=== PATIENT | female | born 1955 | race Caucasian/White ===

== ENCOUNTER → 2017-10-05 | Outpatient (CLI) | payer BC ==
--- NOTE | 2017-10-06 11:21 | MM ---
Reason for exam: additional evaluation requested from prior study. Last mammogram was performed 2 years and 5 months ago. History: Patient is postmenopausal. Benign US biopsy breast VAD RT of the right breast, April 23, 2015. Benign right US cyst aspiration of the right breast, July 27, 2005. Cyst aspiration of the right breast. Physical Findings: Nurse did not find any significant physical abnormalities on exam. MG 3D Diag Mammo W/Cad KARISSA Bilateral CC and MLO view(s) were taken. LM, spot compression CC, and spot compression MLO view(s) were taken of the right breast. Prior study comparison: April 23, 2015, right breast MG diagnostic mammo RT wo CAD. April 07, 2015, right breast MG 3d work up w/cad RT. The breast tissue is heterogeneously dense. This may lower the sensitivity of mammography. Right biopsy marker noted. Architectural distortion in upper outer quadrant of the right breast at middle posterior depth. These results were verbally communicated with the patient and result sheet given to the patient on 10/05/17. ASSESSMENT: Incomplete: need additional imaging evaluation, BI-RAD 0 RECOMMENDATION: Ultrasound of the right breast.
--- NOTE | 2017-10-06 11:25 | USB ---
Reason for exam: additional evaluation requested from prior study. History: Patient is postmenopausal. Benign US biopsy breast VAD RT of the right breast, April 23, 2015. Benign right US cyst aspiration of the right breast, July 27, 2005. Cyst aspiration of the right breast. US Breast Limited RT Right limited breast ultrasound including focal area of concern, retroareolar and axilla demonstrates a 0.4 x 0.3 x 0.5cm cystic cluster at 9 o'clock, appears benign and a 1.2 x 0.7 x 0.9cm hypoechoic lesion at 8 o'clock, highly suspicious shadowing, irregular margins, taller than wide, biopsy recommended, corresponds to mammographic finding. These results were verbally communicated with the patient and result sheet given to the patient on 10/05/17. ASSESSMENT: Highly suggestive of malignancy, BI-RAD 5 RECOMMENDATION: Ultrasound core biopsy of the right breast. Called with mammographic findings and has scheduled an appointment for the patient with Dr. Terry. Biopsy scheduled for 10/12/17 at 1:00. PRELIMINARY REPORT CALLED AND FAXED TO DR. TERRY ON 10/06/17.
== END | disposition home or self-care (01) ==
LOC: RADMAMWWP 10:19
PROVIDERS: ATTEND Internal Medicine
DX: R92.8 Other abnormal and inconclusive findings on diagnostic imaging of breast (principal)
CPT/HCPCS: 77062; 77066

== ENCOUNTER → 2017-10-12 | Day surgery (SDC) | payer BC ==
[2017-10-12 12:35] VITALS: RESP 16; BMI 29.5
[2017-10-12 13:54] VITALS: BP 150/82; PULSE 77; TEMP 98.2
--- NOTE | 2017-10-12 14:48 | MM ---
EXAMINATION TYPE: US biopsy breast VAD RT DATE OF EXAM: 10/12/2017 CLINICAL HISTORY: R92.8 Abnormal Mammogram. TECHNIQUE: Ultrasound guided core biopsy of right breast. COMPARISON: NONE FINDINGS: The procedure of ultrasound guided core biopsy was explained to the patient. Benefits, alt ernatives, and risks were discussed. An informed consent was then obtained. The patient was placed in supine positioning for imaging and for the procedure. The overlying skin w as prepped and draped in usual sterile fashion. Lidocaine buffered with bicarbonate was used as anes thetic into the skin and subcutaneous tissue up to area of concern in the right breast. A small lesly was made with surgical scalpel. Under ultrasound guidance, a 12-gauge vacuum assisted biopsy gun device was used to obtain 7 core nory ples. Following this, a biopsy clip was left in lesion. The patient tolerated the procedure well without any immediate complication. The patient was kept in the radiology department for short stay after the procedure and then discharged home in stable condi tion. Postprocedure mammogram ordered by the physician was obtained. Surgical clip is in the expected regio n. Cortical clip was placed. A second rib and is also identified. IMPRESSION: 1. Successful ultrasound-guided core biopsy right breast 8:00 position. Recommendations: 1. Recommendations are pending pathology results.
--- NOTE | 2017-10-12 14:48 | USB ---
EXAMINATION TYPE: US biopsy breast VAD RT DATE OF EXAM: 10/12/2017 CLINICAL HISTORY: R92.8 Abnormal Mammogram. TECHNIQUE: Ultrasound guided core biopsy of right breast. COMPARISON: NONE FINDINGS: The procedure of ultrasound guided core biopsy was explained to the patient. Benefits, alternatives, and risks were discussed. An informed consent was then obtained. The patient was placed in supine positioning for imaging and for the procedure. The overlying skin was prepped and draped in usual sterile fashion. Lidocaine buffered with bicarbonate was used as anesthetic into the skin and subcutaneous tissue up to area of concern in the right breast. A small lesly was made with surgical scalpel. Under ultrasound guidance, a 12-gauge vacuum assisted biopsy gun device was used to obtain 7 core samples. Following this, a biopsy clip was left in lesion. The patient tolerated the procedure well without any immediate complication. The patient was kept in the radiology department for short stay after the procedure and then discharged home in stable condition. Postprocedure mammogram ordered by the physician was obtained. Surgical clip is in the expected region. Cortical clip was placed. A second rib and is also identified. IMPRESSION: 1. Successful ultrasound-guided core biopsy right breast 8:00 position. Recommendations: 1. Recommendations are pending pathology results. Pathology Results: Malignant NEEDLE CORE BIOPSIES OF RIGHT BREAST AT EIGHT O'CLOCK POSITION: Moderately differentiated infiltrating ductal carcinoma. Baudilio grade 2 in association with high grade duct carcinoma in situ showing focal intraluminal necrosis. Approximately 10% of the volume of the specimen is involved by infiltrating carcinoma. See note. Recommendation Surgical consult of the right breast. MELLY
== END ==
LOC: RADUSWWP 12:15
PROVIDERS: ATTEND Internal Medicine
DX: C50.511 Malignant neoplasm of lower-outer quadrant of right female breast (principal); Z17.0 Estrogen receptor positive status [ER+]; Z88.8 Allergy status to other drugs, medicaments and biological substances
CPT/HCPCS: 88305; 77065; 19083; A4648; J2001

== ENCOUNTER 2017-11-21 10:15 | Day surgery (SDC) | payer BC ==
[2017-11-14 12:56] VITALS: BMI 29.5
[~2017-11-21 10:15] MED LIST: DEXAMETHASONE SOD PHOSPHATE 10 MG/ML 1 ML VIAL IV ONE; HEPARIN SODIUM,PORCINE 5,000 UNIT/ML 1 ML VIAL SQ ONE; LACTATED RINGERS 1,000 ML IV SCH; MIDAZOLAM 2 MG/2 ML VIAL IV PRN; ONDANSETRON 4 MG/2 ML VIAL IVP ONE; Pre Op ABX Message 1 EACH MISC MISCELLANE ONE; SCOPOLAMINE 1.5MG/72HR PATCH TRANSDERM ONE
[2017-11-21] MEDS ORDERED: ALPRAZolam 0.25 MG TAB PO ONE (10:32)
[2017-11-21] MEDS ORDERED: LIDOCAINE 1% 20 ML VIAL (10MG/ML) FOR IV START INTRADERMA ONE (10:40)
[2017-11-21] MEDS ORDERED: LIDOCAINE 1% INJ 10MG/ML (20 ML MDV) SQ ONE (11:22)
[2017-11-21] MEDS ORDERED: SODIUM BICARB 4% 5 ML VIAL (0.48 MEQ/ML) MISCELLANE ONE (11:22)
--- NOTE | 2017-11-21 12:01 | NM ---
EXAMINATION TYPE: NM sentinel node injection DATE OF EXAM: 11/21/2017 COMPARISON: NONE HISTORY: Right-sided breast cancer TECHNIQUE AND FINDINGS: The procedure of sentinel lymph node injection was explained to the patient. The benefits, alternatives, and risks were discussed. An informed consent was then obtained. Overlying skin is cleaned with sterile alcohol. Following this, 521 uCi [id number] Tilmanocept was inject ed into single dose at upper outer quadrant position surrounding the right nipple intradermally. The patient tolerated the procedure well without any immediate complication. The patient was kept in the radiology department for short stay after the procedure and then taken to surgery for surgical p rocedure what is presumed intraoperative gamma probe will be used for sentinel lymph node detection. IMPRESSION: Right breast radiotracer injection for sentinel node localization as above.
[2017-11-21] MEDS ORDERED: LIDOCAINE 1% INJ 10MG/ML (20 ML MDV) ONE (12:55)
[2017-11-21] MEDS ORDERED: fentaNYL (PF) 50 MCG/ML 2 ML AMP ONE (12:55)
[2017-11-21] MEDS ORDERED: PROPOFOL 10 MG/ML 20 ML VIAL IV ONE (12:55)
[2017-11-21] MEDS ORDERED: MIDAZOLAM 2 MG/2 ML VIAL ONE (12:55)
[2017-11-21] MEDS ORDERED: SUCCINYLCHOLINE CHLORIDE 100 MG/5 ML SYR IV ONE (12:55)
[2017-11-21] MEDS ORDERED: ePHEDrine SULFATE/0.9% NACL/PF 50 MG/5 ML SYRINGE IV ONE (12:55)
[2017-11-21] MEDS ORDERED: ROPIVACAINE 5 MG/ML 30 ML VIAL MISCELLANE ONE ×2 (13:29)
[2017-11-21] MEDS ORDERED: NALOXONE 0.4 MG/ML 1 ML VIAL IV PRN (14:51)
[2017-11-21] MEDS ORDERED: HYDROmorphone 1 MG/ML 1 ML SYRINGE IVP PRN (14:51)
[2017-11-21] MEDS ORDERED: traMADol 50 MG TAB PO PRN (14:51)
[2017-11-21 15:00] VITALS: RESP 18; TEMP 97.3
[2017-11-21] MEDS: HYDROmorphone 1 MG/ML 1 ML SYRINGE IVP PRN ×2 (15:00→15:15)
--- NOTE | 2017-11-21 15:04 | P.OP ---
Date of Procedure: 11/21/17 Procedure(s) Performed: PREOPERATIVE DIAGNOSIS: Right breast cancer POSTOPERATIVE DIAGNOSIS: Same PROCEDURE: Right Breast wire localization lumpectomy with sentinel lymph node biopsy SURGEON: Alla EBL: Minimal ANESTHESIA: General COMPLICATIONS: None OPERATIVE PROCEDURE: Patient was placed on the operating room table in the supine position. 2 mL of methylene blue was injected into the subareolar space. The breast was then massaged for 5 minutes. The right axilla was addressed at that time. The hot spot in the right axilla was identified. A small curvilinear incision was made using the scalpel. Dissection down through the subcutaneous tissues took place using electrocautery. Using the neoprobe I identified a total of 2 sentinel lymph nodes. They were both somewhat large in size. One of the 2 was blue in color. Frozen section was obtained and thankfully both lymph nodes were negative for metastatic disease. No bleeding was seen. The subcutaneous tissues were closed using 3-0 Vicryl sutures. The skin was closed using 4-0 Monocryl sutures. The wire entrance site was then addressed. This was present at the 9:00 location. A curvilinear incision was made adjacent to the wire entrance site. I followed the wire down into the breast tissue. An adequate lumpectomy specimen then took place around the wire. Margins of 1.5-2 cm worth attempted to be achieved. As I palpated the specimen the induration was closest to the superior and posterior margins. For that reason I took off an additional small fairly thin portion of tissue at the superior and posterior aspect marking these as new margins. The paint was utilized on the new margin side. The initial lumpectomy specimen was also painted using the appropriate color. The clip submarine advisory team watch officer was used to elizabeth the lumpectomy site circumferentially. The clip was confirmed to be within the lumpectomy specimen by radiology. The subcutaneous tissues were closed using 3- 0 Vicryl sutures. The skin was closed using a running 4-0 Monocryl stitch. Steri-Strips and sterile dressings were applied. DISPOSITION: Stable to recovery room
[2017-11-21] MEDS ORDERED: traMADol 50 MG TAB PO ONE (16:27)
[2017-11-21 16:43] VITALS: PULSE 103
[2017-11-21 17:07] VITALS: BP 132/82
--- NOTE | 2017-11-23 08:07 | MM ---
EXAMINATION TYPE: MG pre op needle loc RT, MG surgical specimen RT DATE OF EXAM: 11/21/2017 COMPARISON: Mammogram October 20, 2017 and older studies CLINICAL HISTORY: Ultrasound-guided biopsy-proven infiltrating ductal carcinoma October 12, 2017 TECHNIQUE: Needle localization with wire placement and surgical excision of area of concern in the [facility] breast with specimen radiograph. FINDINGS: The procedure of needle localization with wire placement and than surgical excision was exp lained to the patient. Benefits, alternatives, and risks were discussed. An informed consent was th en obtained. The shortest pathway for procedure was chosen. Shortest pathway was lateral approach. The overlying skin was prepped and draped in usual sterile fashion. Lidocaine buffered with bicarbonate was used a s anesthetic into the skin and subcutaneous tissue up to the level of area of concern. A 5 cm needle was used. It was placed via a lateral approach under mammographic guidance. Subsequent 90 degrees mammogram show the needle to be in satisfactory position relative to the targeted area. At this poin t, wire was placed and the needle was withdrawn. The wire was fixed to patient's skin. Images were marked for surgeon. The patient tolerated the procedure well without any immediate complication. The patient was kept in the radiology department for short stay after the procedure and then taken to surgery for surgical e xcision. Targeted biopsy clip and wire are identified in specimen mammogram. The patient was kept in hospital for short stay after the procedure and then discharged home in stable condition. IMPRESSION: Successful, uncomplicated needle localization with wire placement and surgical excision o f targeted biopsy clip at level of biopsy-proven malignancy in the right breast, full pathology resul ts to follow.
== END 2017-11-21 17:28 | disposition home or self-care (01) ==
LOC: OR 10:15
PROVIDERS: ATTEND Surgery
DX: C50.511 Malignant neoplasm of lower-outer quadrant of right female breast (principal); Z88.8 Allergy status to other drugs, medicaments and biological substances; Z79.02 Long term (current) use of antithrombotics/antiplatelets; Z79.899 Other long term (current) drug therapy; E78.5 Hyperlipidemia, unspecified; I10 Essential (primary) hypertension; F41.9 Anxiety disorder, unspecified; Z87.891 Personal history of nicotine dependence
CPT/HCPCS: 19301; 38525; 76098; 19281; 38792; A9520; J2250; J1644; J1100; J2405; J2001; J3010; J1170; J2795; J0330; J2704; 88307; 88331; 88341; 88342

== ENCOUNTER → 2018-02-07 | Outpatient (CLI) | payer BC ==
--- NOTE | 2018-02-08 08:21 | BD ---
EXAMINATION TYPE: Axial Bone Density DATE OF EXAM: 02/07/2018 COMPARISON: DEXA bone scan June 01, 2013 CLINICAL HISTORY: Breast cancer, postmenopausal female. Height: 5 FT 2 1/2 IN Weight: 158 FRAX RISK QUESTIONS: RISK FACTORS HISTORY OF: Active: YES Postmenopausal woman: AGE 54 MEDICATIONS: Additional Medications: HYZAAR, CLONIDINE, PRAVASTATIN, POTASSIUM Additional History: RECENT BREAST CANCER PT RADIATION ONLY EXAM MEASUREMENTS: Bone mineral densitometry was performed using the [employer] System. Bone mineral density as measured about the Lumbar spine is: ----- L1-L4(G/cm2): 1.196 T Score Values are as follows: ----- L2: 0.0 ----- L3: 0.8 ----- L4: 0.2 ----- L1-L4: 0.1 Bone mineral density has: DECREASED -4.5 % since study of: 2013 Bone mineral density about the R hip (g/cm2): 1.059 Bone mineral density about the L hip (g/cm2): 1.177 T Score values are as follows: -----R Neck: 0.1 -----L Neck: 1.0 -----R Total: 1.2 -----L Total: 1.6 Bone mineral density has: DECREASED -1.8 % since study of: 2013 IMPRESSION: Normal (Values between +1 and -1 indicate normal bone mass). Consider repeating this study in 5 year s or sooner if there is some new clinical indication. NOTE: T-SCORE=SD OF THE YOUNG ADULT MEAN.
== END ==
LOC: RADBDWWP 15:27
PROVIDERS: ATTEND Internal Medicine Hematology & Oncology
DX: C50.511 Malignant neoplasm of lower-outer quadrant of right female breast (principal); Z78.0 Asymptomatic menopausal state
CPT/HCPCS: 77080

== ENCOUNTER → 2018-10-17 | Outpatient (CLI) | payer BC ==
--- NOTE | 2018-10-17 13:49 | MM ---
Reason for exam: additional evaluation requested from prior study. Last mammogram was performed 1 year ago. History: Patient is postmenopausal and has history of breast cancer at age 61. Malignant MG pre op needle loc RT of the right breast, November 21, 2017. Lumpectomy of the right breast, November 21, 2017. Malignant US biopsy breast VAD RT of the right breast, October 12, 2017. Benign US biopsy breast VAD RT of the right breast, April 23, 2015. Benign right US cyst aspiration of the right breast, July 27, 2005. Cyst aspiration of the right breast. Taking antineoplastic for 1 year. Physical Findings: Nurse did not find any significant physical abnormalities on exam. MG 3D Diag Mammo W/Cad KARISSA Bilateral CC and MLO view(s) were taken. Prior study comparison: October 12, 2017, right breast MG diagnostic mammo RT wo CAD. October 05, 2017, bilateral MG 3d diag mammo w/cad KARISSA. The breast tissue is heterogeneously dense. This may lower the sensitivity of mammography. No suspicious abnormality. Post therapy change on the right. These results were verbally communicated with the patient and result sheet given to the patient on 10/17/18. ASSESSMENT: Benign, BI-RAD 2 RECOMMENDATION: Follow-up diagnostic mammogram of both breasts in 1 year.
== END | disposition home or self-care (01) ==
LOC: RADMAMWWP 12:57
PROVIDERS: ATTEND Radiology Radiation Oncology
DX: C50.411 Malignant neoplasm of upper-outer quadrant of right female breast (principal); Z17.0 Estrogen receptor positive status [ER+]; Z92.3 Personal history of irradiation
CPT/HCPCS: 77062; 77066

== ENCOUNTER → 2020-01-28 | Outpatient (CLI) | payer BC ==
--- NOTE | 2020-01-28 14:56 | MM ---
Reason for exam: additional evaluation requested from prior study. Last mammogram was performed 1 year and 3 months ago. History: Patient is postmenopausal and has history of breast cancer at age 61. Malignant MG pre op needle loc RT of the right breast, November 21, 2017. Lumpectomy of the right breast, November 21, 2017. Malignant US biopsy breast VAD RT of the right breast, October 12, 2017. Benign US biopsy breast VAD RT of the right breast, April 23, 2015. Benign right US cyst aspiration of the right breast, July 27, 2005. Cyst aspiration of the right breast. Took hormonal contraceptives for 7 years. Taking antineoplastic for 2 years. Physical Findings: Nurse did not find any significant physical abnormalities on exam. MG 3D Diag Mammo W/Cad KARISSA Bilateral CC and MLO view(s) were taken. Prior study comparison: October 17, 2018, bilateral MG 3d diag mammo w/cad KARISSA. October 12, 2017, right breast MG diagnostic mammo RT wo CAD. The breast tissue is heterogeneously dense. This may lower the sensitivity of mammography. Benign appearing bilateral calcifications. Post surgical changes on right breast. These results were verbally communicated with the patient and result sheet given to the patient on 01/28/20. ASSESSMENT: Benign, BI-RAD 2 RECOMMENDATION: Follow-up diagnostic mammogram of both breasts in 1 year.
--- NOTE | 2020-01-29 06:48 | BD ---
EXAMINATION TYPE: Axial Bone Density DATE OF EXAM: 01/28/2020 COMPARISON: 02/07/2018 CLINICAL HISTORY: Postmenopausal female. Height: 63 IN Weight: 162 LBS RISK FACTORS HISTORY OF: Active: YES Postmenopausal woman: AGE 54 Take estrogen and/or progesterone medications: NOT NOW. TOOK CONTROL FOR 7 YEARS MEDICATIONS: Additional Medications: HIGH BLOOD PRESSURE, GERD MEDS, LETROZOLE,CHOLESTEROL, ANXIETY, POTASSIUM Additional History: BREAST CANCER WITH RADIATION EXAM MEASUREMENTS: Bone mineral densitometry was performed using the [employer] System. Bone mineral density as measured about the Lumbar spine is: ----- L1-L4(G/cm2): 1.125 T Score Values are as follows: ----- L2: -0.9 ----- L3: 0.1 ----- L4: 0.0 ----- L1-L4: -0.5 Bone mineral density has: Decreased -5.5 SINCE STUDY OF 02/07/2018 Bone mineral density about the R hip (g/cm2): 1.010 Bone mineral density about the L hip (g/cm2): 0.987 T Score values are as follows: -----R Neck: -0.2 -----L Neck: -0.4 -----R Total: 0.7 -----L Total: 1.1 Bone mineral density has: Decreased -5.4 SINCE STUDY OF 02/07/2018 IMPRESSION: Normal (Values between +1 and -1 indicate normal bone mass). Consider repeating this study in 5 year s or sooner if there is some new clinical indication. NOTE: T-SCORE=SD OF THE YOUNG ADULT MEAN.
== END | disposition home or self-care (01) ==
LOC: RADMAMWWP 13:43
PROVIDERS: ATTEND Internal Medicine Hematology & Oncology
DX: Z08 Encounter for follow-up examination after completed treatment for malignant neoplasm (principal); Z85.3 Personal history of malignant neoplasm of breast; Z78.0 Asymptomatic menopausal state
CPT/HCPCS: 77062; 77066; 77080

== ENCOUNTER → 2021-01-29 | Outpatient (CLI) | payer BC ==
--- NOTE | 2021-01-29 12:32 | MM ---
Reason for exam: additional evaluation requested from prior study. Last mammogram was performed 1 year ago. History: Patient is postmenopausal and has history of breast cancer at age 61. Malignant MG pre op needle loc RT of the right breast, November 21, 2017. Lumpectomy of the right breast, November 21, 2017. Malignant US biopsy breast VAD RT of the right breast, October 12, 2017. Benign US biopsy breast VAD RT of the right breast, April 23, 2015. Benign right US cyst aspiration of the right breast, July 27, 2005. Cyst aspiration of the right breast. Took hormonal contraceptives for 7 years. Taking antineoplastic for 2 years. Physical Findings: Nurse did not find any significant physical abnormalities on exam. MG 3D Diag Mammo W/Cad KARISSA Bilateral CC and MLO view(s) were taken. XCCL view(s) were taken of the right breast. Prior study comparison: January 28, 2020, bilateral MG 3d diag mammo w/cad KARISSA. October 17, 2018, bilateral MG 3d diag mammo w/cad KARISSA. The breast tissue is heterogeneously dense. This may lower the sensitivity of mammography. Post surgical and post therapy change right breast. Some faint calcifications are noted at the lumpectomy site, likely early fat necrosis calcifications for which a 6 month follow up is recommended. These results were verbally communicated with the patient and result sheet given to the patient on 01/29/21. ASSESSMENT: Probably benign, BI-RAD 3 RECOMMENDATION: Follow-up diagnostic mammogram of the right breast in 6 months.
== END | disposition home or self-care (01) ==
LOC: RADMAMWWP 10:24
PROVIDERS: ATTEND Internal Medicine Hematology & Oncology
DX: R92.8 Other abnormal and inconclusive findings on diagnostic imaging of breast (principal); Z85.3 Personal history of malignant neoplasm of breast
CPT/HCPCS: 77062; 77066

== ENCOUNTER → 2021-08-18 | Outpatient (CLI) | payer BC ==
--- NOTE | 2021-08-18 13:52 | MM ---
Reason for exam: follow-up at short interval from prior study. Last mammogram was performed 7 months ago. History: Patient is postmenopausal and has history of breast cancer at age 61. Malignant MG pre op needle loc RT of the right breast, November 21, 2017. Lumpectomy of the right breast, November 21, 2017. Malignant US biopsy breast VAD RT of the right breast, October 12, 2017. Benign US biopsy breast VAD RT of the right breast, April 23, 2015. Benign right US cyst aspiration of the right breast, July 27, 2005. Cyst aspiration of the right breast. Took hormonal contraceptives for 7 years. Taking antineoplastic for 2 years. Physical Findings: A clinical breast exam by your physician is recommended on an annual basis and results should be correlated with mammographic findings. MG 3D Diag Mammo W/Cad RT CC and MLO view(s) were taken of the right breast. Prior study comparison: January 29, 2021, bilateral MG 3d diag mammo w/cad KARISSA. January 28, 2020, bilateral MG 3d diag mammo w/cad KARISSA. October 17, 2018, bilateral MG 3d diag mammo w/cad KARISSA. The breast tissue is heterogeneously dense. This may lower the sensitivity of mammography. Finding #1: There is stable architectural distortion in the right breast consistent with known treatment changes. Finding #2: There are typically benign vascular, round calcifications in the right breast. Results were given to the patient verbally at the time of the exam. ASSESSMENT: Benign, BI-RAD 2 RECOMMENDATION: Routine screening mammogram of both breasts in 6 months.
== END | disposition home or self-care (01) ==
LOC: RADMAMWWP 12:50
PROVIDERS: ATTEND Internal Medicine Hematology & Oncology
DX: R92.8 Other abnormal and inconclusive findings on diagnostic imaging of breast (principal)
CPT/HCPCS: 77061; 77065

== ENCOUNTER → 2022-02-01 | Outpatient (CLI) | payer BC ==
--- NOTE | 2022-02-01 10:51 | BD ---
EXAMINATION TYPE: Axial Bone Density DATE OF EXAM: 02/01/2022 COMPARISON: 02.07.18 (PREVIOUS 01.28.20 UNAVAILABLE) CLINICAL HISTORY: 66 years year old Female. ICD-10 CODE: Z78.0 Post janna w/HRT Height: 62IN Weight: 168LB FRAX RISK QUESTIONS: Secondary Osteoporosis: RISK FACTORS HISTORY OF: Active: YES Postmenopausal woman: YES MEDICATIONS: Additional Medications: BP MED, CHOLESTEROL MED, HORMONE SARINA, GI MED Additional History: BREAST CANCER 3 YEARS AGO WITH RADIATION EXAM MEASUREMENTS: Bone mineral densitometry was performed using the [employer] System. Bone mineral density as measured about the Lumbar spine is: ----- L1-L4(G/cm2): 1.115 T Score Values are as follows: ----- L1: -1.2 ----- L2: -1.3 ----- L3: 0.0 ----- L4: 0.0 ----- L1-L4: -0.5 Bone mineral density has: Decreased -7.5% since study of: 02-07-18 (PREVIOUS OF 01-28-20 UNAVAILABLE) Bone mineral density about the R hip (g/cm2): 1.081 Bone mineral density about the L hip (g/cm2): 1.113 T Score values are as follows: -----R Neck: -0.5 -----L Neck: 0.4 -----R Total: 0.6 -----L Total: 0.8 Bone mineral density has: Decreased -7.1% since study of: 02-07-18 FRAX%s: The graph provided illustrates a 6.9% chance for a major osteoporotic fx and a 0.3% chance fo r the hips probability for fx in 10 years time. IMPRESSION: Osteopenia (T Score between -2.5 and -1). There is slightly increased risk of fracture and the patient may be considered for treatment. Re-Screen 2-5 years. NOTE: T-SCORE=SD OF THE YOUNG ADULT MEAN.
== END | disposition home or self-care (01) ==
LOC: RADBDWWP 09:50
PROVIDERS: ATTEND Internal Medicine Hematology & Oncology
DX: R92.8 Other abnormal and inconclusive findings on diagnostic imaging of breast (principal); Z78.0 Asymptomatic menopausal state
CPT/HCPCS: 77080

== ENCOUNTER → 2022-02-24 | Outpatient (CLI) | payer BC ==
--- NOTE | 2022-02-24 14:17 | MM ---
Reason for Exam: Follow-up at short interval from prior study. Last mammogram was performed 1 year(s) and 1 month(s) ago. Patient History: Menarche at age 13. First Full-Term at age 25. Postmenopausal. Breast cancer, right, age 61. Previous chest radiation therapy at age 61. Patient used Hormonal Contraceptives for 7 years. 11/21/2017, Lumpectomy on the Right side. Cyst Aspiration on the Right side. 11/21/2017, Malignant Core Biopsy on the right side. 10/12/2017, Malignant Core Biopsy on the right side. 04/23/2015, Benign Core Biopsy on the right side. 07/27/2005, Benign Cyst Aspiration on the right side. Prior Study Comparison: 01/28/2020 Bilateral Diagnostic Mammogram, [facility]. 01/29/2021 Bilateral Diagnostic Mammogram, [facility]. 08/18/2021 Right Diagnostic Mammogram, [facility]. Tissue Density: The breast tissue is heterogeneously dense. This may lower the sensitivity of mammography. Findings: Analyzed By CAD. Posttreatment changes to the right breast posterior outer aspect demonstrated from biopsy right breast again seen. There are round along with dystrophic and vascular calcifications in the right breast redemonstrated. Occasional tiny benign-appearing round calcification left breast and and left-sided subtle vascular calcification. No suspicious new distortion or worrisome group of microcalcifications in either breast. Overall Assessment: Benign, BI-RAD 2 Management: Diagnostic Mammogram of both breasts in 1 year. A clinical breast exam by your physician is recommended on an annual basis and results should be correlated with mammographic findings. This exam should not preclude additional follow-up of suspicious palpable abnormalities. Results were given to the patient verbally at the time of exam. Electronically signed and approved by: Dane Fair M.D.
== END | disposition home or self-care (01) ==
LOC: RADMAMWWP 13:28
PROVIDERS: ATTEND Internal Medicine Hematology & Oncology
DX: C50.511 Malignant neoplasm of lower-outer quadrant of right female breast (principal); E78.5 Hyperlipidemia, unspecified; I10 Essential (primary) hypertension; Z71.3 Dietary counseling and surveillance; Z92.3 Personal history of irradiation; Z78.0 Asymptomatic menopausal state
CPT/HCPCS: 77062; 77066

== ENCOUNTER → 2022-10-05 | Outpatient (CLI) | payer BC ==
--- NOTE | 2022-10-05 12:45 | XR ---
EXAM TYPE: LUMBAR SPINE X RAY SERIES COMPARISON: NONE HISTORY: Pain TECHNIQUE: 4 views are submitted. FINDINGS: Alignment is anatomic. The pedicles are intact. The transverse processes are intact. There is diff use osteopenia with moderate to severe degenerative disc disease at virtually all levels. There is a grade 1 anterolisthesis of L4 on L5 and there is severe facet arthropathy at L4-5 and L5-S1. Calcific ations in the upper quadrant may be vascular or related to splenic and hepatic granuloma. IMPRESSION: 1. Moderate to severe multilevel foraminal encroachment and facet arthropathy with grade 1 anterolist hesis of L4 on L5. Recommend follow-up MRI.
== END | disposition home or self-care (01) ==
LOC: RADXRMAIN 12:18
PROVIDERS: ATTEND Family Medicine
DX: M47.816 Spondylosis without myelopathy or radiculopathy, lumbar region (principal); M99.73 Connective tissue and disc stenosis of intervertebral foramina of lumbar region; M43.16 Spondylolisthesis, lumbar region
CPT/HCPCS: 72100

== ENCOUNTER → 2022-11-01 | Outpatient (CLI) | payer BC ==
--- NOTE | 2022-11-01 14:51 | MR ---
EXAMINATION TYPE: MR lumbar spine wo con DATE OF EXAM: 11/01/2022 12:11 PM COMPARISON: NONE HISTORY: M47.816 Multiplanar, MultiSpin echo imaging of the lumbar spine was performed. L1-L2: Normal disc appearance without desiccation. No herniation, protrusion or disc bulging. No ca nal stenosis is present. Foramina are patent bilaterally. L2-L3: Mild decreased signal ossified compatible with mild degenerative disc disease. No herniation, protrusion or disc bulging. No canal stenosis is present. Foramina are patent bilaterally. L3-L4: Mild decreased signal ossified compatible with mild degenerative disc disease. No herniation, protrusion or disc bulging. No canal stenosis is present. Foramina are patent bilaterally. L4-L5: Mild disc desiccation. Far lateral and to the right disc protrusion or small herniation result ing in mild right foraminal encroachment. No evidence for central stenosis. Left neural foramen is pa tent. Grade 1 anterolisthesis L4 and L5 measuring 4 mm related to facet joint arthropathy. L5-S1: Mild disc desiccation. Far lateral and to the right broad-based disc bulge results in mild rig ht-sided neural foraminal encroachment. No evidence for central stenosis. Left neural foramen is rosado nt. Lumbar segments are intact. No paraspinal masses are identified. Conus medullaris has a normal appe arance. IMPRESSION: 1. Multilevel degenerative disc disease as discussed. 2. Far lateral and to the right disc protrusion or small herniation L4-5 and disc bulging at L5-S1. A t each of these levels are free of encroachment.
== END | disposition home or self-care (01) ==
LOC: RADMRIMAIN 11:26
PROVIDERS: ATTEND Family Medicine
DX: M47.816 Spondylosis without myelopathy or radiculopathy, lumbar region (principal); M51.36 Other intervertebral disc degeneration, lumbar region; M51.37 Other intervertebral disc degeneration, lumbosacral region
CPT/HCPCS: 72148

== ENCOUNTER → 2023-03-16 | Outpatient (CLI) | payer MEDICARE ==
--- NOTE | 2023-03-21 01:12 | MM ---
Reason for Exam: Screening (asymptomatic). Last mammogram was performed 2 year(s) and 1 month(s) ago. Patient History: Menarche at age 13. First Full-Term at age 25. Postmenopausal. Breast cancer, right, age 61. Previous chest radiation therapy at age 61. Patient used Hormonal Contraceptives for 7 years. 11/21/2017, Lumpectomy on the Right side. Cyst Aspiration on the Right side. 11/21/2017, Malignant Core Biopsy on the right side. 10/12/2017, Malignant Core Biopsy on the right side. 04/23/2015, Benign Core Biopsy on the right side. 07/27/2005, Benign Cyst Aspiration on the right side. Prior Study Comparison: 01/29/2021 Bilateral Diagnostic Mammogram, [facility]. 08/18/2021 Right Diagnostic Mammogram, [facility]. 02/24/2022 Bilateral MG 3D diag mammo w/cad KARISSA, [facility]. Tissue Density: There are scattered fibroglandular densities. Findings: Analyzed By CAD. Postsurgical and posttreatment changes redemonstrated on the right. Microclip right breast from prior biopsy. Areas of asymmetric densities remain unchanged. There is no suspicious group of microcalcifications or new suspicious mass in either breast. Overall Assessment: Benign, BI-RAD 2 Management: Screening Mammogram of both breasts in 1 year. . Patient should continue monthly self-breast exams. A clinical breast exam by your physician is recommended on an annual basis. This exam should not preclude additional follow-up of suspicious palpable abnormalities. Electronically signed and approved by: Ronen Fernandez M.D. Radiologist
== END | disposition home or self-care (01) ==
LOC: RADMAMWWP 11:28
PROVIDERS: ATTEND Internal Medicine Hematology & Oncology
DX: Z12.31 Encounter for screening mammogram for malignant neoplasm of breast (principal); Z78.0 Asymptomatic menopausal state; Z85.3 Personal history of malignant neoplasm of breast
CPT/HCPCS: 77063; 77067

== ENCOUNTER 2023-09-18 12:53 | Emergency (ER) | payer MEDICARE ==
--- NOTE | 2023-09-18 13:35 | ED ---
Upper Extremity HPI - General Chief Complaint: Extremity Injury, Upper Stated Complaint: LEFT FINGER AMPUTATION Time Seen by Provider: 09/18/23 13:22 Source: patient, family, RN notes reviewed, old records reviewed Mode of arrival: wheelchair Limitations: no limitations - History of Present Illness Initial Comments: This is a 67-year-old female for gardening accident. Patient was using electrical petrona in her garden and cut off the distal aspect of her left index finger. No bleeding bleeding was minimal she did feel diaphoretic she is can a pass out but brought to the emergency room by her neighbor. No blood thinners no other injury noted MD Complaint: Injury to:: left, finger (Pointer finger amputation) -: minutes(s) Other Extremity Injury: Fingers: Left Other Injuries: none Handedness: left Place: home Severity scale (1-10): 10 Improves With: none Worsens With: none Context: laceration, injury Associated Symptoms: denies other symptoms Treatments Prior to Arrival: bandage - Related Data Home Medications Medication Instructions Recorded Confirmed Potassium Chloride [K-Tab ER] 10 meq PO DAILY 06/04/14 11/21/17 cloNIDine HCL [Catapres] 0.1 mg PO BID 06/04/14 11/21/17 Losartan/Hydrochlorothiazide 1 each PO DAILY 10/10/17 11/21/17 [Losartan-Hctz 100-25 mg Tab] Pravastatin Sodium [Pravachol] 40 mg PO DAILY 10/10/17 11/21/17 Previous Rx's Medication Instructions Recorded traMADol HCl [Ultram] 50 mg PO Q6H PRN #12 tab 11/21/17 Cephalexin [Keflex] 500 mg PO Q6HR 28 Days #4 cap 09/18/23 Allergies Allergy/AdvReac Type Severity Reaction Status Date / Time prochlorperazine edisylate AdvReac gets lock Verified 11/21/17 10:29 [From Compazine] jaw, eyes roll into back of head prochlorperazine maleate AdvReac gets lock Verified 11/21/17 10:29 [From Compazine] jaw, eyes roll into back of head Review of Systems ROS Statement: Those systems with pertinent positive or pertinent negative responses have been documented in the HPI. ROS Other: All systems not noted in ROS Statement are negative. Past Medical History Past Medical History: Cancer, Hyperlipidemia, Hypertension Additional Past Medical History / Comment(s): NEW DX BREAST CANCER 10/24/17 History of Any Multi-Drug Resistant Organisms: None Reported Past Surgical History: Orthopedic Surgery, Tonsillectomy Additional Past Surgical History / Comment(s): trigger finger surgery. RT CORE BREAST BX. VARICOSE VEIN STRIPPING LT LEG. COLONOSCOPY Past Anesthesia/Blood Transfusion Reactions: No Reported Reaction Past Psychological History: Anxiety Past Alcohol Use History: Rare Past Drug Use History: None Reported - Past Family History Mother Family Medical History: No Reported History General Exam - General Exam Comments Initial Comments: Patient does have distal digit amputation of the left index finger with no bleeding Limitations: no limitations General appearance: alert, in no apparent distress Head exam: Present: atraumatic, normocephalic, normal inspection Eye exam: Present: normal appearance, PERRL, EOMI. Absent: scleral icterus, conjunctival injection, periorbital swelling ENT exam: Present: normal exam, mucous membranes moist Neck exam: Present: normal inspection. Absent: tenderness, meningismus, lymphadenopathy Respiratory exam: Present: normal lung sounds bilaterally. Absent: respiratory distress, wheezes, rales, rhonchi, stridor Cardiovascular Exam: Present: regular rate, normal rhythm, normal heart sounds. Absent: systolic murmur, diastolic murmur, rubs, gallop, clicks GI/Abdominal exam: Present: soft, normal bowel sounds. Absent: distended, tenderness, guarding, rebound, rigid Extremities exam: Present: normal inspection, full ROM, normal capillary refill. Absent: tenderness, pedal edema, joint swelling, calf tenderness Back exam: Present: normal inspection Neurological exam: Present: alert, oriented X3, CN II-XII intact Psychiatric exam: Present: normal affect, normal mood Skin exam: Present: warm, dry, intact, normal color. Absent: rash Course Vital Signs 09/18/23 09/18/23 09/18/23 13:00 14:03 14:41 Temperature 97.5 F L Pulse Rate 87 74 86 Respiratory 18 18 16 Rate Blood Pressure 80/49 134/96 120/68 O2 Sat by Pulse 98 100 98 Oximetry - Reevaluation(s) Reevaluation #1: 09/18/23 14:18 Medical records reviewed Reevaluation #2: 09/18/23 14:18 Patient symptoms unchanged still with pain although pain is improved Reevaluation #3: 09/18/23 14:18 Patient informed of results and questions answered Reevaluation #4: Was pt. sent in by a medical professional or institution ([facility] De Souza, STAIN SPRAYER, urgent care, hospital, or senior care...) When possible be specific @ -no Did you speak to anyone other than the patient for history (EMS, parent, family, police, friend...)? What history was obtained from this source @ -no Did you review nursing and triage notes (agree or disagree)? Why? @ -agree Are old charts reviewed (outside hosp., previous admission, EMS record, old EKG, old radiological studies, urgent care reports/EKG's, senior care records)? Report findings @ -yes Differential Diagnosis (chest pain, altered mental status, abdominal pain women, abdominal pain men, vaginal bleeding, weakness, fever, dyspnea, syncope, headache, dizziness, GI bleed, back pain, seizure, CVA, palpatations, mental health, musculoskeletal)? @ -prior EKG interpreted by me (3pts min.). @ -no X-rays interpreted by me (1pt min.). @ -yes positive for distal fingertip amputation CT interpreted by me (1pt min.). @ -no U/S interpreted by me (1pt. min.). @ -no What testing was considered but not performed or refused? (CT, X-rays, U/S, labs)? Why? @ -none What meds were considered but not given or refused? Why? @ -none Did you discuss the management of the patient with other professionals (professionals i.e. [facility]RISTOPHER De Souza, STAIN SPRAYER, lab, RT, psych nurse, social media sr strategy manager, scalp specialist, teacher, information technology officer, lining caser)? Give summary @ -no Was smoking cessation discussed for >3mins.? @ -no Were there social determinants of health that impacted care today? How? (Homelessness, low income, unemployed, alcoholism, drug addiction, transportation, low edu. Level, literacy, decrease access to med. care, prison, rehab)? @ -none Was there de-escalation of care discussed even if they declined (Discuss DNR or withdrawal of care, Hospice)? DNR status @ -no What co-morbidities impacted this encounter? (DM, HTN, Smoking, COPD, CAD, Cancer, CVA, ARF, Chemo, Hep., AIDS, mental health diagnosis, sleep apnea, morbid obesity)? @ -none Was patient admitted / discharged? Hospital course, mention meds given and route, prescriptions, significant lab abnormalities, going to OR and other pertinent info. @ - 67 female with left index finger amputation wound is cleaned and bandaged here in the ER, patient is in no distress and can be discharged home Discharged finger Was critical care preformed (if so, how long)? @ -no Undiagnosed new problem with uncertain prognosis? @ -no Drug Therapy requiring intensive monitoring for toxicity (Heparin, Nitro, Insulin, Cardizem)? @ -no Were any procedures done? @ -no Diagnosis/symptom? @ -Tip amputation Acute, or Chronic, or Acute on Chronic? @ -Acute Uncomplicated (without systemic symptoms) or Complicated (systemic symptoms)? @ -Complicated Side effects of treatment? @ -no Exacerbation, Progression, or Severe Exacerbation? @ -exacerbation Poses a threat to life or bodily function? How? (Chest pain, USA, SD, pneumonia, PE, COPD, DKA, ARF, appy, cholecystitis, CVA, Diverticulitis, Homicidal, Suicidal, threat to staff... and all critical care pts) @ -yes threat to limb with fingertip amputation Procedures - Laceration Laceration #1 Consent Obtained: verbal consent Indication: laceration Site: hand Size (cm): 6 Description: linear Sedation/Analgesia: none Pre-repair: extreme cleansing Complications: pain Patient Tolerated Procedure: well Additional Comments: Wound was just significantly cleaned, bandaged and splinted, minimal bleeding Medical Decision Making - Medical Decision Making 67 female with left index finger amputation wound is cleaned and bandaged here in the ER, patient is in no distress and can be discharged home - Radiology Data Radiology results: report reviewed (X-ray shows left distal index finger amputation), image reviewed Disposition Clinical Impression: Amputation of left index finger Disposition: HOME SELF-CARE Condition: Good Instructions (If sedation given, give patient instructions): Finger Amputation (ED) Prescriptions: Cephalexin [Keflex] 500 mg PO Q6HR 28 Days #4 cap Is patient prescribed a controlled substance at d/c from ED?: No Referrals: Mandeep Mistry MD [Primary Care Provider] - 1-2 days Shun Powers DO [Doctor of Osteopathic Medicine] - 1-2 days Time of Disposition: 14:20
[2023-09-18] MEDS: CEPHALEXIN 500 MG CAP PO STA (13:52)
[2023-09-18] MEDS: HYDROmorphone 1 MG/ML 1 ML SYRINGE IM STA (13:53)
[2023-09-18] MEDS: DIPH,PERTUS(ACELL)TETVAC-LF 0.5 ML VIAL IM ONE (13:53)
--- NOTE | 2023-09-18 14:05 | XR ---
EXAMINATION TYPE: XR hand complete LT DATE OF EXAM: 09/18/2023 COMPARISON: None HISTORY: Injury index finger TECHNIQUE: 3 view left hand FINDINGS: There is amputation of the tuft of the index finger. Osseous structures and soft tissues ar e absent. No additional osseous abnormality is evident. Remaining soft tissues appear normal. Joint spaces appe ar preserved. IMPRESSION: 1. Amputation of the distal portion distal phalanx index finger left hand
[2023-09-18 14:21] VITALS: TEMP 97.5
[2023-09-18 15:12] VITALS: BP 120/68; PULSE 86; RESP 16
== END 2023-09-18 14:41 | disposition home or self-care (01) ==
LOC: EC 12:53
DX: S61.211A Laceration without foreign body of left index finger without damage to nail, initial encounter (principal); Z23 Encounter for immunization; Z88.8 Allergy status to other drugs, medicaments and biological substances; W29.3XXA Contact with powered garden and outdoor hand tools and machinery, initial encounter; Y93.H2 Activity, gardening and landscaping
CPT/HCPCS: 90471 ×2; 96372 ×2; 99283 ×2; 12002; 12001; 73130; 90715; J1170

== ENCOUNTER → 2024-03-21 | Outpatient (CLI) | payer MEDICARE ==
--- NOTE | 2024-03-23 15:23 | MM ---
Reason for Exam: Screening (asymptomatic). Last screening mammogram was performed 12 month(s) ago. Patient History: Menarche at age 13. First Full-Term at age 25. Postmenopausal. Breast cancer, right, age 61. Previous chest radiation therapy at age 61. Patient used Hormonal Contraceptives for 7 years. 11/21/2017, Lumpectomy on the Right side. Cyst Aspiration on the Right side. 11/21/2017, Malignant Core Biopsy on the right side. 10/12/2017, Malignant Core Biopsy on the right side. 04/23/2015, Benign Core Biopsy on the right side. 07/27/2005, Benign Cyst Aspiration on the right side. Prior Study Comparison: 10/12/2017 Right Diagnostic Mammogram, [facility]. 10/17/2018 Bilateral Diagnostic Mammogram, [facility]. 01/28/2020 Bilateral Diagnostic Mammogram, [facility]. 01/29/2021 Bilateral Diagnostic Mammogram, [facility]. 08/18/2021 Right Diagnostic Mammogram, [facility]. 02/24/2022 Bilateral MG 3D diag mammo w/cad KARISSA, [facility]. 03/16/2023 Bilateral MG 3D screening mammo w/cad, [facility]. Tissue Density: The breasts are heterogeneously dense, which may obscure small masses. Findings: Analyzed By CAD. Postsurgical and posttreatment changes redemonstrated right breast. Scattered benign oil cyst calcifications particularly on the right. Microclip right breast from prior biopsy. There is no suspicious group of microcalcifications or new suspicious mass in either breast. Overall Assessment: Benign, BI-RAD 2 Management: Screening Mammogram of both breasts in 1 year. . Patient should continue monthly self-breast exams. A clinical breast exam by your physician is recommended on an annual basis. This exam should not preclude additional follow-up of suspicious palpable abnormalities. [facility], , 03/23/2024 3:20 PM. Electronically signed and approved by: Ronen Fernandez M.D. Radiologist
== END | disposition home or self-care (01) ==
LOC: RADMAMWWP 11:07
PROVIDERS: ATTEND Internal Medicine Hematology & Oncology
DX: Z12.31 Encounter for screening mammogram for malignant neoplasm of breast (principal); Z78.0 Asymptomatic menopausal state; R92.333 Mammographic heterogeneous density, bilateral breasts
CPT/HCPCS: 77063; 77067

== ENCOUNTER → 2024-10-30 | Outpatient (CLI) | payer MEDICARE ==
--- NOTE | 2024-10-31 06:34 | BD ---
EXAMINATION TYPE: Axial Bone Density DATE OF EXAM: 10/30/2024 CLINICAL HISTORY: 68 years old Female. ICD-10 CODE: [id number] CARCINOMA OF LOWER QUAD , Additional Hist ory: Height: 62.25 Weight: 158.14 FRAX RISK QUESTIONS: Alcohol (3 or more units per day): no Family History (Parent hip fracture): no Glucocorticoids (More than 3mos): no (Ex: prednisone, prednisolone, methylprednisolone, dexamethasone, and hydrocortisone). History of Fracture in Adulthood: no Secondary Osteoporosis: 1. Type 1 Diabetes: no 2. Hyperthyroidism: no 3. Menopause before 45: no 4. Malnutrition: no 5. Chronic liver disease: no Rheumatoid Arthritis: no Current Tobacco Use: no RISK FACTORS HISTORY OF: Hip Fracture (Right/Left): no Spine Fracture: no History of Wrist Fracture: no Surgery to Spine/Hip(right/left)/Wrist (right/left): no MEDICATIONS: Thyroid Medications: no Osteoporosis Medications: no EXAM MEASUREMENTS: Bone mineral densitometry was performed using the [employer] System. Bone mineral density as measured about the Lumbar spine is: ----- L1-L4(G/cm2): 1.164 T Score Values are as follows: ----- L1: -1.0 ----- L2: -0.7 ----- L3: -0.1 ----- L4: 0.9 ----- L1-L4: -0.1 Z Score Values are as follows: ----- L1: 0.4 ----- L2: 0.7 ----- L3: 1.3 ----- L4: 2.2 ----- L1-L4: 1.3 Bone mineral density has: increased 4.4 % since study of: 02/01/2022 Bone mineral density about the R hip (g/cm2): 1.101 Bone mineral density about the L hip (g/cm2): 1.129 T Score values are as follows: -----R Neck: -0.2 -----L Neck: -0.2 -----R Total: 0.7 -----L Total: 1.0 Z Score values are as follows: -----R Neck: 1.2 -----L Neck: 1.2 -----R Total: 1.9 -----L Total: 2.1 Bone mineral density has: increased 1.6 % since study of: 02/01/2022 FRAX%s: The graph provided illustrates a 7.0 % chance for a major osteoporotic fx and a 0.3% chance f or the hips probability for fx in 10 years time. IMPRESSION: Normal (Values between +1 and -1 indicate normal bone mass). Consider repeating this study in 5 year s or sooner if there is some new clinical indication. NOTE: T-SCORE=SD OF THE YOUNG ADULT MEAN. [facility], , 10/31/2024 6:31 AM
== END | disposition home or self-care (01) ==
LOC: RADBDWWP 14:51
PROVIDERS: ATTEND Internal Medicine Hematology & Oncology
DX: M81.0 Age-related osteoporosis without current pathological fracture (principal); C50.511 Malignant neoplasm of lower-outer quadrant of right female breast; E78.5 Hyperlipidemia, unspecified; I10 Essential (primary) hypertension; Z71.3 Dietary counseling and surveillance
CPT/HCPCS: 77080